=== PATIENT | female | born 1995 | race Caucasian/White ===

== ENCOUNTER 2017-03-07 20:36 | Emergency (ER) | payer SELFPAY ==
[2017-03-07] MEDS ORDERED: Naloxone Nasal Spray* 4 MG/0.1 ML NASAL.SPR NASAL ONE (20:59)
[2017-03-07] MEDS ORDERED: Ondansetron ODT TAB* 4 MG PO ONE (23:08)
[2017-03-07 23:12] VITALS: BP 126/82
--- NOTE | 2017-03-08 13:22 | ED ---
Sherif March Nilda, scribed for Malachi Jin MD on 03/07/17 at 2110 . Substance Abuse/Use - HPI Summary HPI Summary: This patient is a 21 year old F BIBA presenting to [facility] accompanied by friend with a chief complaint of overdose on heroin since earlier tonight. Per EMS, the friend found the patient unconscious after injecting with heroine and administered narcan. Patient was alert and breathing when EMS arrived. Patient reports recent stressors. She denies cough, and dyspnea. Patient is not currently in [facility]. She had been sober from heroin since 02/09/2016. - History Of Current Complaint Chief Complaint: EDOverdose Stated Complaint: OVERDOSE Time Seen by Provider: 03/07/17 20:49 Hx Obtained From: Patient, EMS Hx Last Menstrual Period: NOW Onset/Duration of Drug/ETOH Abuse: Hours Ingestion History: Type/Name Of Drug - heroin Timing Of Abuse: Recent Cessation For A Period Of - 1 year Severity Initially: Severe Severity Currently: None Character: Fearful Aggravating Factor(s): Recent Stress - Allergies/Home Medications Allergies/Adverse Reactions: Allergies Allergy/AdvReac Type Severity Reaction Status Date / Time Prochlorperazine Allergy See Comment Verified 03/07/17 20:40 [From Compazine] PMH/Surg Hx/FS Hx/Imm Hx Endocrine/Hematology History: Denies: Hx Diabetes, Hx Systemic Lupus Erythematosus Cardiovascular History: Denies: Hx Congestive Heart Failure, Hx Hypertension History: Denies: Hx Dialysis, Hx Renal Disease Musculoskeletal History: Reports: Other Musculoskeletal History - scoliosis Denies: Hx Rheumatoid Arthritis - Cancer History Hx Chemotherapy: No - Surgical History Surgery Procedure, Year, and Place: vaginal cyst removed - Immunization History Immunizations Up to Date: Yes Infectious Disease History: No Infectious Disease History: Denies: Traveled Outside the [place] in Last 30 Days - Family History Known Family History: Positive: Cardiac Disease, Hypertension - Social History Alcohol Use: Occasionally Substance Use Type: Reports: Heroin, Marijuana Smoking Status (MU): Current Every Day Smoker Type: Cigarettes Amount Used/How Often: 1/2 PPD Review of Systems Negative: Fever, Chills Negative: Erythema Negative: Sore Throat Negative: Palpitations, Chest Pain Negative: Shortness Of Breath, Cough Negative: Abdominal Pain, Vomiting, Nausea Negative: dysuria, hematuria Negative: Myalgia, Edema Negative: Rash Neurological: Other - LOC (resolved); negative dizziness Psychological: Other - heroin addiction All Other Systems Reviewed And Are Negative: Yes Physical Exam - Summary Physical Exam Summary: Constitutional: Well-developed, Well-nourished, Alert. Skin: Warm, Dry HENT: Normocephalic; Atraumatic Eyes: Conjunctiva normal, 5 mm pupils that are reactive Neck: Musculoskeletal ROM normal neck. (-) JVD, (-) Stridor, (-) Tracheal deviation Cardio: Rhythm regular, rate normal, Heart sounds normal; Intact distal pulses; The pedal pulses are 2+ and symmetric. Radial pulses are 2+ and symmetric. (-) Murmur Pulmonary/Chest wall: Effort normal. (-) Respiratory distress, (-) Wheezes, (-) Rales Abd: Soft, (-) Tenderness, (-) Distension, (-) Guarding, (-) Rebound Musculoskeletal: (-) Edema Lymph: (-) Cervical adenopathy Neuro: Alert, Oriented x3 Psych: Tearful Triage Information Reviewed: Yes Vital Signs On Initial Exam: Initial Vitals Temp Pulse Resp BP Pulse Ox 99.5 F 113 19 139/98 100 03/07/17 20:38 03/07/17 20:38 03/07/17 20:38 03/07/17 20:38 03/07/17 20:38 Vital Signs Reviewed: Yes - Stacy Coma Scale Coma Scale Total: 15 Diagnostics - Vital Signs Vital Signs Temp Pulse Resp BP Pulse Ox 03/07/17 20:38 99.5 F 113 19 139/98 100 - Laboratory Lab Statement: Any lab studies that have been ordered have been reviewed, and results considered in the medical decision making process. Course/Dx - Course Assessment/Plan: This patient is a 21 year old F [place]IB[place] presenting to [facility] accompanied by friend with a chief complaint of overdose on heroin since earlier tonight. Per EMS, the friend found the patient unconscious after injecting with heroine and administered narcan. Patient was alert and breathing when EMS arrived. Patient reports recent stressors. She denies cough, and dyspnea. Patient is not currently in [facility]. She had been sober from heroin since 02/09/2016. Patient will be discharged with a diagnosis of heroin overdose and two Narcan nasal spray. She was advised to follow up with [facility] ([facility]). The patient is agreeable with this plan. - Diagnoses Provider Diagnoses: Heroin overdose Discharge - Discharge Plan Condition: Stable Disposition: HOME Patient Education Materials: Narcotic Abuse (ED) Referrals: No Primary Care Phys,[facility] [Primary Care Provider] - [facility], [facility] [Other] (Hotline: ) Additional Instructions: Follow up with [facility] ([facility]). Return to Emergency Department for changing or worsening symptoms. The documentation as recorded by the Sherif anderson Nilda accurately reflects the service I personally performed and the decisions made by , Malachi Jin MD.
== END 2017-03-07 23:25 | disposition home or self-care (01) ==
LOC: ED 20:36
DX: T40.1X1A Poisoning by heroin, accidental (unintentional), initial encounter (principal); F17.210 Nicotine dependence, cigarettes, uncomplicated
CPT/HCPCS: 99282; A9270-GY

== ENCOUNTER 2020-02-18 06:19 | Inpatient (IN) ==
[~2020-02-18 06:19] MED LIST: Buffered Lidocaine 1% SYRIN 1 ml INTRADERM ONE; Lactated Ringers 1000 ml BAG 1,000 ML IV SCH; Sodium Citrate/Citric Acid LIQ 15 ML UDC PO ONE
[2020-02-18] MEDS ORDERED: ceFOXitin 2 GM IVPREMIX 2 GM/50 ML BAG IVPB ONE (07:00)
[2020-02-18] MEDS ORDERED: Midazolam 2 mg/2 ml VIAL 1 mg/ml 2 ml VIAL (2 mg) ONE (07:45)
[2020-02-18] MEDS ORDERED: Dexamethasone IV 4 MG/ML VIAL 1 ml VIAL ONE (07:45)
[2020-02-18] MEDS ORDERED: EPHEDrine (Pressors) 50 MG/ML VIAL ONE (07:45)
[2020-02-18] MEDS ORDERED: Ondansetron 4 mg VIAL 2 MG/ML 2 ml VIAL ONE (07:45)
[2020-02-18] MEDS ORDERED: Midazolam 5 mg/5 ml VIAL 1 mg/ml 5 ml VIAL (5 mg) ONE (07:45)
[2020-02-18] MEDS ORDERED: Morphine PF AMP (0.5MG/ML) 5 MG/10 ML AMP ONE (07:45)
[2020-02-18] MEDS ORDERED: Oxytocin 10 UNITS/ML 1 ML VIAL ONE (07:45)
[2020-02-18] MEDS ORDERED: Propofol 10 MG/ML 20 ML BTL ONE (07:45)
[2020-02-18 07:46] LABS: ABS Eosinophils 0.3 10^3/ul (0-0.6); ABS Lymphocytes 2.1 10^3/ul (1.0-4.8); ABS Neutrophils 8.4 10^3/ul (1.5-7.7); Eosinophil % 2.2 %; Hematocrit 31 % (35-47); Hemoglobin 10.7 g/dL (12.0-16.0); Lymphocyte % 17.7 %; Mean Corpuscular HGB Conc 35 g/dL (31-36); Mean Corpuscular Hemoglobin 28 pg (27-31); Mean Corpuscular Volume 81 fL (80-97); Mean Platelet Volume 8.3 fL (7.4-10.4); Platelet Count 229 10^3/uL (150-450); Red Blood Count 3.81 10^6 /uL (3.70-4.87); Red Cell Distribution Width 14 % (10-15); White Blood Count 11.8 10^3/uL (3.5-10.8)
[2020-02-18 08:10] LABS: Urine Benzodiazepine Screen None Detected (None Detect); Urine Cannabinoids Screen Presumptive Positive (None Detect); Urine Opiates Screen None Detected (None Detect)
[2020-02-18] MEDS ORDERED: Naloxone 0.4 mg VIAL 0.4 mg/ml 1 ml VIAL IV PRN (09:21)
[2020-02-18] MEDS ORDERED: diPHENhydraMINE IV 50 MG/ML 1 ml VIAL (BENADRYL) IV PRN (09:21)
[2020-02-18] MEDS ORDERED: Witch Hazel PAD JAR TOPICAL PRN (09:33)
[2020-02-18] MEDS ORDERED: Dibucaine 1% OINT 28.35 GM TUBE PR PRN (09:33)
[2020-02-18] MEDS ORDERED: Glycerin ADULT 2.4 gm SUPP PR PRN (09:33)
[2020-02-18] MEDS ORDERED: Lactated Ringers 1000 ml BAG 1,000 ML IV SCH (10:00)
[2020-02-18] MEDS: Buprenorphine 2 mg SL TAB PO SCH ×3 (14:09→20:49)
[2020-02-19] MEDS: Buprenorphine 2 mg SL TAB PO SCH ×4 (09:06→21:01)
[2020-02-19 10:33] LABS: Hematocrit 34 % (35-47); Hemoglobin 11.1 g/dL (12.0-16.0); Mean Corpuscular HGB Conc 33 g/dL (31-36); Mean Corpuscular Hemoglobin 27 pg (27-31); Mean Corpuscular Volume 82 fL (80-97); Red Blood Count 4.18 10^6 /uL (3.70-4.87); Red Cell Distribution Width 15 % (10-15); White Blood Count 14.4 10^3/uL (3.5-10.8)
[2020-02-19 11:20] LABS: ABS Eosinophils 0.1 10^3/ul (0-0.6); ABS Lymphocytes 2.2 10^3/ul (1.0-4.8); Eosinophil % 0.9 %; Lymphocyte % 15.3 %; Platelet Count Platelets clumped. 10^3/uL (150-450)
[2020-02-20] MEDS: Buprenorphine 2 mg SL TAB PO SCH ×2 (09:06→13:35)
[2020-02-20 09:38] VITALS: BP 115/95
== END 2020-02-20 15:00 | disposition home or self-care (01) | DRG 540 ==
LOC: MCHOB 06:19
PROVIDERS: ADMIT Obstetrics & Gynecology; ATTEND Obstetrics & Gynecology